=== PATIENT | female | born 1995 | race Hispanic/Latino ===

== ENCOUNTER 2024-02-06 19:42 | Emergency (ER) | payer OTHER ==
[~2024-02-06] VITALS: Ht 160 cm; Wt 62.1 kg
[2024-02-06 20:13] LABS: APPEARANCE,URINE CLEAR (CLEAR); BILIRUBIN,URINE NEGATIVE (NEGATIVE); COLOR,URINE COLORLESS (YELLOW); GLUCOSE, URINE (UA) NEGATIVE (NEGATIVE); KETONES,URINE NEGATIVE (NEGATIVE); LEUKOCYTE ESTERASE ,URINE NEGATIVE Leu/uL (NEGATIVE); NITRATE,URINE NEGATIVE (NEGATIVE); OCCULT BLOOD,URINE NEGATIVE (NEGATIVE); PH,URINE 6.5 (5.0-8.0); PROTEIN,URINE 10 mg/dL (NEGATIVE); UROBILINOGEN,URINE 0.2 mg/dL (0.2-1.0)
[2024-02-06 20:17] LABS: ADD UA MICROSCOPIC YES
[2024-02-06 20:18] LABS: BACTERIA,URINE RARE /HPF (None Seen)
[2024-02-06 22:23] VITALS: BP 146/86; PULSE 72; RESP 18; O2SAT 100
[2024-02-06] MEDS ORDERED: IBUP-2070 PO (22:27)
[2024-02-06] MEDS: IBUPROFEN 600 MG TABLET PO ONE (22:41)
== END 2024-02-06 22:45 | disposition home or self-care (01) ==
LOC: EDH 19:42
DX: R10.2 Pelvic and perineal pain (principal); F41.9 Anxiety disorder, unspecified; Z98.890 Other specified postprocedural states
CPT/HCPCS: 76857; 81001; 81025